=== PATIENT | male | born 1940 | race Caucasian/White ===

== ENCOUNTER 2024-05-02 17:24 | Emergency (ER) | payer OTHER, SELFPAY ==
[2024-05-02 17:25] VITALS: BP 145/74; PULSE 67; RESP 14; TEMP 36.9; O2SAT 97; BMI 24.1
[2024-05-02 17:37] VITALS: O2SAT 98
[2024-05-02 17:38] VITALS: BP 145/74; O2SAT 97
[2024-05-02 17:44] VITALS: BP 186/82
--- NOTE | 2024-05-02 17:58 | ED.MALEGU ---
HPI - Male Genitourinary General Chief complaint: Urogenital-Male Stated complaint: unable to urinate Time Seen by Provider: 05/02/24 17:43 Source: patient Mode of arrival: Ambulatory History of Present Illness HPI Narrative: 83-year-old male presents for inability to urinate since earlier this morning. Patient was in [place] on vacation and has been in his usual state of health until today. He states that he has somewhat increasing difficulty in urinating over the last several weeks, but did not think anything of it. He has never seen a urologist before. Related Data Previous Rx's Medication Instructions Recorded sulfamethoxazole 800 1 tab PO Q12H #20 tabs 05/02/24 mg-trimethoprim 160 mg tablet tamsulosin 0.4 mg capsule (Flomax) 0.4 mg PO DAILY #30 caps 05/02/24 Allergies Allergy/AdvReac Type Severity Reaction Status Date / Time No Known Drug Allergies Allergy Verified 05/02/24 17:40 Patient History Social History Smoking Status: Unknown if ever smoked Smoking Status: Unknown if ever smoked alcohol intake frequency: holidays/special occasions only Substance Use Type: does not use Exam Initial Vital Signs Initial Vital Signs: Vital Signs Temperature 98.5 F 05/02/24 17:25 Pulse Rate 67 05/02/24 17:25 Respiratory Rate 14 05/02/24 17:25 Blood Pressure 145/74 H 05/02/24 17:25 Pulse Oximetry 97 05/02/24 17:25 Oxygen Delivery Method Room Air 05/02/24 17:25 Const: Awake, alert, no acute distress, nontoxic appearing, appears younger than stated age Cardiac: regular rate, regular rhythm RESP: unlabored, clear bilaterally, no wheezing GI: Soft, nontender, nondistended : Low catheter in place with somewhat cloudy yellow urine Skin: Warm, Dry, intact, no rashes Neuro: AO x3, CN II-XII grossly intact, moves all extremities Course Orders Ordered: ED Orders 05/02/24 17:50 UA Complete [Urinalysis and Microscopic] Stat Urine Culture Stat Vital Signs Vital signs: Vital Signs - 8 hr 05/02/24 17:25 05/02/24 17:37 05/02/24 17:38 Temperature 98.5 F Pulse Rate 67 Respiratory Rate 14 Blood Pressure 145/74 H 145/74 H Pulse Oximetry 97 98 Oxygen Delivery Method Room Air 05/02/24 17:38 05/02/24 17:44 05/02/24 19:21 Temperature Pulse Rate 69 Respiratory Rate 18 Blood Pressure 186/82 H 180/80 H Pulse Oximetry 97 98 Oxygen Delivery Method Room Air MDM - Male Genitourinary Lab Data Labs: Lab Results 05/02/24 Range/Units 17:50 Urine Color Yellow Urine Appearance Clear Urine pH 6.0 (4.5-8.0) Ur Specific [place] 1.010 (1.000-1.035) Urine Protein Negative (Negative) Urine Glucose (UA) Negative (Negative) g/dL Urine Ketones Negative (NEGATIVE) Urine Occult Blood 2+ H (Negative) Urine Nitrate Positive H (Negative) Urine Bilirubin Negative (NEGATIVE) Urine Urobilinogen 0.2 (0.2) E.U./dL Ur Leukocyte Esterase Trace H (NEGATIVE) Urine RBC 1-5/hpf (0-5/HPF) Urine WBC 5-10/hpf H (0-5/HPF) Ur Squamous Epith Cells None seen (0-5/HPF) Amorphous Sediment 1+ Urine Bacteria Few (2-10) H (None) Ur Culture Indicated? Specimen cultured Vol Urine Centrifuged 10ml (spun) [facility] Narrative Medical decision making narrative: Inability to urinate today. I evaluated the patient after Low catheter has been placed by nursing staff. They report 900 cc of urine per bladder scan, Low catheter drained approximately 800 cc of yellow urine. Patient states that he has never had to have a catheter placed before and has never seen a urologist. He was not take Flomax. Urinalysis shows nitrites and bacteria present. Since catheter is in place we will treat with antibiotics. Patient counseled on the importance of following up with Urology when he goes back home to [facility] next week. Antibiotics and Flomax sent to pharmacy of choice. Discharge Plan Departure Patient Disposition: Home Clinical Impression: Acute retention of urine, Acute UTI Instructions: How to Care for Your Low Catheter -- Male, DI for Benign Prostatic Hyperplasia, DI for Urinary Retention in Men Activity Restrictions/Additional Instructions: You had 800mL of urine drained from your bladder. This is likely from overgrowth of your prostate, which can happen with time and age. You also had some bacteria in your urine. You will be started on 2 different medications. The 1st is Flomax, which helps your prostate drain urine. The 2nd is an antibiotic for your urinary tract infection. Finish all of your antibiotics as prescribed. Make sure that you follow up with a urologist when you go back home to [place]. Prescriptions: New tamsulosin [Flomax] 0.4 mg capsule 0.4 mg PO DAILY Qty: 30 0RF sulfamethoxazole-trimethoprim 800-160 mg tablet 1 tab PO Q12H Qty: 20 0RF Referrals: Miscellaneous,Doctor, MD [Primary Care Provider] - Stand Alone Forms: Patient Portal/API
[2024-05-02 18:09] LABS: Appearance Urine UA CLEAR; Bilirubin Urine UA NEGATIVE (NEGATIVE); Color Urine UA YELLOW; Glucose Urine UA NEGATIVE (Negative); Ketones Urine UA NEGATIVE (NEGATIVE); Leukocyte Esterase Urine UA TRACE (NEGATIVE); Nitrite Urine UA POSITIVE (Negative); Occult Blood Urine UA 2+ (Negative); Protein Urine UA NEGATIVE (Negative); Urobilinogen Urine UA 0.2 E.U./dL (0.2)
[2024-05-02 18:20] LABS: Amorphous Sediment Urine 1+; Bacteria Urine Few (2-10); Culture Indicated Urine Specimen Cultured; RBC Urine 1-5/HPF (0-5/HPF); Squamous Epithelial Cell Urine None Seen (0-5/HPF); Urine Volume 10mL (spun); WBC Urine 5-10/HPF (0-5/HPF)
[2024-05-02 19:21] VITALS: BP 180/80; PULSE 69; RESP 18; O2SAT 98
== END 2024-05-02 19:24 | disposition home or self-care (01) ==
PROVIDERS: Emergency Medicine; Emergency Provider Emergency Medicine
DX: N39.0 Urinary tract infection, site not specified (principal); R33.8 Other retention of urine
CPT/HCPCS: 81001; 87086; 99282; 99283